=== PATIENT | male | born 1970 | race Caucasian/White ===

== ENCOUNTER 2018-02-03 07:24 | Day surgery (SDC) | payer OTHER ==
[2018-02-03] VITALS (8 sets, daily range): BP systolic 105–123; BP diastolic 69–80
[~2018-02-03] VITALS: Ht 213.4 cm; Wt 163.3 kg
--- NOTE | 2018-02-03 06:59 | Anethesia Preoperative Eval ---
Anesthesia Pre-op PMH/ROS General Date of Evaluation: Feb 03, 2018 Time of Evaluation: 06:59 Anesthesiologist: norma ASA Score: ASA 3 Mallampati Score Class I : Soft palate, uvula, fauces, pillars visible Class II: Soft palate, uvula, fauces visible Class III: Soft palate, base of uvula visible Class IV: Only hard plate visible Mallampati Classification: Class II Surgeon: reynold Diagnosis: gerd Surgical Procedure: egd Anesthesia History: none Family History: no anesthesia problems Allergies: Coded Allergies: No Known Allergies (Unverified , 02/03/18) Medications: see eMAR Patient NPO?: Yes Past Medical History Pulmonary: Reports: NATALIE Gastrointestinal/Genitourinary: Reports: GERD Musculoskeletal/Integumentary: Reports: other - gout Anesthesia Pre-op Phys. Exam Physician Exam Constitutional: NAD Neurologic: CN 2-12 intact Cardiovascular: RRR Respiratory: CTA Gastrointestinal: S/NT/ND Airway Exam Mallampati Score: Class II MO: full Neck: flexible TMD: 2fb ROM: full Dentures: upper Anesthesia Pre-op A/P Risk Assessment & Plan Assessment: asa3 Plan: mac Status Change Before Surgery: No Pre-Antibiotics Drug: Jelena Wilde MD Feb 03, 2018 06:59
[~2018-02-03 07:24] MED LIST: Atropine Inj 1mg/10ml Syr IV PRN; DiphenhydrAMINE 50mg/ml Inj IVP PRN; LR 1000ml 1,000 ML IVLG SCH; Midazolam 2mg/2ml Inj IVP PRN; fentaNYL 100 mcg/2 mL IV PRN
[2018-02-03] MEDS ORDERED: Propofol 200mg/20ml IV ONE (08:00)
[2018-02-03] MEDS ORDERED: Lidocaine 1% MPF 10mg/ml 5ml ONE (08:00)
[2018-02-03] MEDS ORDERED: LR 1000ml ONE (08:00)
[2018-02-03] MEDS ORDERED: OMEPRAZOLE20 M2 ORAL (08:03)
[2018-02-03] MEDS ORDERED: ALLOPURINOL100 M1 ORAL (08:03)
--- NOTE | 2018-02-03 08:28 | Short Stay Surgery H&P ---
History of Present Illness History of Present Illness Chief Complaint Abdominal pains and heartburn HPI Jorge Robles is a 47 year old male who was admitted on for GERDS and abdominal pains Patient History Allergies: Coded Allergies: No Known Allergies (Unverified , 02/03/18) PAST MEDICAL HISTORY: (1) Hypertension (2) Gout (3) H/O foot surgery Medication History Scheduled Allopurinol* (Allopurinol*), 100 MG ORAL DAILY, (Reported) Omeprazole (Omeprazole), 30 MG ORAL DAILY, (Reported) Review of Systems Cardiovascular: Reports: no symptoms Respiratory: Reports: no symptoms Skeletal: Reports: trauma Gastrointestinal: Reports: gastro esophageal reflux disease Genitourinary: Reports: no symptoms Neurologic: Reports: no symptoms Endocrine: Reports: no symptoms Physical Exam Vital Signs Last Vital Signs Date Time Temp Pulse Resp B/P (MAP) Pulse Ox O2 Delivery O2 Flow Rate FiO2 02/03/18 08:15 98.5 72 18 105/70 95 Room Air Skin: normal HENT: normal Heart: normal Lungs: normal Abdomen: abnormal Extremities: normal Genitourinary: normal Plan Plan of Care Upper GI endoscopy and biopsy Preop Interventions None. Summary of Findings see the reports Attestation Are the patient's medical conditions optimized for surgery? Attestation Response: yes Nichol Sarah MD Feb 03, 2018 08:28
--- NOTE | 2018-02-03 08:29 | Pre-Procedure Note/Attestation ---
Pre-Procedure Note/Attestation Complete Prior to Procedure Planned Procedure: left Procedure Narrative: Endoscopic exam of the upper GI tract and biopsy Indications for Procedure Pre-Operative Diagnosis: R/O peptic ulcer/gastritis. Attestation I attest that I discussed the nature of the procedure; its benefits; risks and complications; and alternatives (and the risks and benefits of such alternatives ), prior to the procedure, with the patient (or the patient's legal commissary representative). I attest that, if there was a reasonable possibility of needing a blood transfusion, the patient (or the patient's legal commissary representative) was given the [facility] standardized written summary, pursuant to the [place]aushik Blood Safety Act ([place] Health and Safety Code # 1645, as amended). I attest that I re-evaluated the patient just prior to the surgery and that there has been no change in the patient's H&P, except as documented below: Nichol Sarah MD Feb 03, 2018 08:29
--- NOTE | 2018-02-03 08:40 | Endoscopy Procedure Note ---
Endoscopy Procedure Note General Indication for Procedure: Abominal pains/GERDs Procedures Performed: EGD - Mild antritis otherwise completely normal upper GI endoscopy. Biopsies obtained from gastric body and antrum. Specimen: yes Pt Tolerated Procedure Well: Yes Estimated Blood Loss: none Anesthesia Anesthesiologist: Dr. Patton Anesthesia: moderate sedation Medications Medication Given: see anesthesia record Inserted Devices Implant(s) used?: No Quality Quality of Bowel Preparation: Excellent Was there any complications?: No GI Core Measures 50 yrs or older w/o bx or poly: Not Applicable 10yrs. F/U not recommended: Not Applicable If not recommended, why?: Med reason:<3 yrs.: System Reason:<3 yrs.: Nichol Sarah MD Feb 03, 2018 08:40
--- NOTE | 2018-02-03 08:42 | Discharge Instructions ---
Discharge Instructions Discharge Instructions Follow up with: See docotor in office after 2 weeks For Congestive Heart Failure Reminder Report to your physician any weight gain of 5 pounds or more in one week. Nichol Sarah MD Feb 03, 2018 08:42
--- NOTE | 2018-02-03 09:01 | Immediate Post-Op Evaluation ---
Immediate Post-Op Evalulation Immediate Post-Op Evalulation Procedure: egd w/bx Date of Evaluation: Feb 03, 2018 Time of Evaluation: 08:59 IV Fluids: 150ml lr Blood Products: none Estimated Blood Loss: negligible Blood Pressure Systolic: 123 Blood Pressure Diastolic: 80 Pulse Rate: 73 Respiratory Rate: 18 O2 Sat by Pulse Oximetry: 98 Temperature (Fahrenheit): 97.2 Pain Score (1-10): 0 Nausea: No Vomiting: No Complications none Patient Status: awake, reacts, patent Hydration Status: adequate Drug: Jelena Wilde MD Feb 03, 2018 09:01
--- NOTE | 2018-02-03 09:02 | 48 Hour Post Anesthesia Eval ---
Post Anesthesia Evaluation Procedure: egd w/bx Date of Evaluation: Feb 03, 2018 Time of Evaluation: 09:01 Blood Pressure Systolic: 120 0: 80 Pulse Rate: 73 Respiratory Rate: 18 Temperature (Fahrenheit): 97.2 O2 Sat by Pulse Oximetry: 98 Airway: patent Nausea: No Vomiting: No Pain Intensity: 0 Hydration Status: adequate Cardiopulmonary Status: stable Mental Status/LOC: patient returned to baseline Post-Anesthesia Complications: none Follow-up care needed: N/A Jelena Cui MD Feb 03, 2018 09:02
--- NOTE | 2018-02-03 14:45 | Procedure Note ---
DATE OF PROCEDURE: 02/03/2018 SURGEON: Nichol Sarah M.D. PROCEDURE: Esophagogastroduodenoscopy with biopsy. PREOPERATIVE DIAGNOSES: 1. Epigastric pain. 2. History of chronic gastroesophageal reflux. 3. Dysphagia, rule out esophagitis, gastritis, peptic ulcer disease. POSTOPERATIVE DIAGNOSIS: Mild antritis, otherwise normal upper GI endoscopy. Biopsy was taken from prepyloric area and gastric body. MEDICATION USED: Per Dr. Patton, anesthesiologist. INSTRUMENT: GIF Olympus video upper GI endoscope. DESCRIPTION OF PROCEDURE: The patient after arriving endoscopy unit, was told about risks and benefits of the procedure which he accepted and signed informed consent. He was then put on the left lateral decubitus position. After adequate IV sedation, the scope was gently passed through the cricopharyngeal area, was lodged in the upper esophagus and gradually advanced towards gastroesophageal junction. The entire length of the esophagus looked normal and there was no any evidence of pathology such as a esophagitis, ulcers, or strictures etc. GE junction also looked normal and there was no evidence of Zambrano's or hiatal hernia. At this time, the scope was advanced into the stomach. Gastric cavity was distended with insufflation of air and the areas of the fundus and the body and the antrum were examined gradually. The stomach itself was completely normal except some mild inflammatory process in prepyloric area consistent with antritis from which one biopsy was obtained. A retroflexion maneuver was also applied and the area of the gastroesophageal junction was examined in a closer fashion, which revealed no other pathologies. At this point, one random biopsy from gastric body obtained. Subsequently, the scope was passed through normal looking pylorus. First and second portion of duodenum were found to be also completely normal. At this time, the scope was pulled out and the procedure was terminated. The patient tolerated the procedure well and left the endoscopy room in a good condition. Nichol Sarah M.D. DR: Jayleen JOB#: [id number] CC:
--- NOTE | 2018-02-03 15:15 | Pre-op HX & Phy Repo 2 SIG ---
DATE OF ADMISSION: 02/03/2018 HISTORY OF PRESENT ILLNESS: The patient was being seen prior to undergoing the procedure of upper GI endoscopy. He is a 47-year-old gentleman, who is being examined endoscopically for the evaluation of epigastric pain and the symptoms that he has been complaining of after his injury at work. 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 He was started on multiple medications including nonsteroidal anti-inflammatory agents, which gradually gave rise to the symptoms of having epigastric pain along with difficulty swallowing at times. He reports that occasionally the food get stuck over his upper esophagus area. This situation has been felt intermittently. He however denies having any change in bowel movements such as constipation or diarrhea. The applicant has been gaining significant amount of weight, which currently does have condition of morbid obesity as well. He has been treated with omeprazole and acid suppressors in the past and presently for the problem of gastroesophageal reflux and seems to be his condition as well. He denies having any GI bleeding such as hematemesis, melena, hematochezia. PAST MEDICAL HISTORY: The applicant has had history of gout and borderline hypertension, otherwise unremarkable. PAST SURGICAL HISTORY: He has had over his left knee area and also inguinal hernia operation in the past along with right foot surgery as well. ALLERGIES: None significant. HABITS: He denies drinking alcohol and does not smoke cigarettes. MEDICATIONS: Stool softeners, allopurinol, indomethacin, and omeprazole. REVIEW OF SYSTEMS: Basically history of present illness. He denies any headaches or dizziness, history of chest pain, shortness of breath, or cough. PHYSICAL EXAMINATION: GENERAL: Reveals alert, well-oriented gentleman, does not seem to be in any acute distress. He answers the questions properly. He is excessively overweight. HEENT: Normocephalic. Pupils equal in size and reactive to light and accommodation. No visible jaundice. Buccal cavity, tongue midline, well hydrated. No ulcers. NECK: Supple. No JVD, thyromegaly, adenopathy. CHEST: Clear to auscultation and percussion. No rales or rhonchi. HEART: S1, S2 normal. Regular rhythm. No gallops or murmur. ABDOMEN: He is significantly obese and there are areas of tenderness over the upper part of the abdomen including areas of epigastric section. There is no palpable mass, however. Bowel sounds are present. EXTREMITIES: Unremarkable. No pretibial edema, cyanosis, or clubbing. CENTRAL NERVOUS SYSTEM: Normal. INITIAL PREOPERATIVE IMPRESSION: 1. Epigastric pain of uncertain etiology, rule out NSAID induced gastropathy, peptic ulcer disease, gastritis, esophagitis. 2. Dysphagia, possibly secondary to gastroesophageal acid reflux aggravated by use of NSAID medications, rule out esophagitis. 3. Borderline hypertension, morbid obesity, sleep apnea, and gout. RECOMMENDATION: The applicant seems to be stable at this time to undergo the procedure of upper GI endoscopy for which he has been scheduled. He understands the risks and benefits and will sign the consent. Said Pop Sarah DR: JOMAR JOB#: [id number] CC:
== END 2018-02-03 09:50 | disposition home or self-care (01) ==
LOC: SDS 07:24
DX: K29.50 Unspecified chronic gastritis without bleeding (principal); I10 Essential (primary) hypertension; M10.9 Gout, unspecified; G47.30 Sleep apnea, unspecified; E66.01 Morbid (severe) obesity due to excess calories
CPT/HCPCS: 43239; J2704; 94003; 94150